=== PATIENT | female | born 1960 | race American Indian/Alaskan Native ===

== ENCOUNTER → 2020-06-08 10:40 | Outpatient (CLI) | payer MEDICARE, MEDICAID, SELFPAY ==
--- NOTE | 2020-06-08 | DI.US.S_ITS ---
PROCEDURE: US PERIPH VENOUS LOW EXTREM RT INDICATIONS: RIGHT LEG SWELLING TECHNIQUE: Real-time imaging, as well as color and pulse Doppler interrogation, were performed of the lower extremity deep veins from the inguinal ligament to the popliteal fossa. COMPARISON: None. FINDINGS: The common femoral, femoral and popliteal veins are normally compressible, and free of intraluminal thrombus. Color and pulse Doppler demonstrate normal phasic intraluminal flow. There is normal augmentation response to distal compression maneuver. IMPRESSION: Negative for deep venous thrombosis. Dictated by: Walter Muniz M.D. on 06/08/2020 at 10:42 Approved by: Walter Muniz M.D. on 06/08/2020 at 10:43
== END ==
PROVIDERS: PCP Family Medicine; Referring Provider Family Medicine; Visit Provider Family Medicine
DX: M79.89 Other specified soft tissue disorders (principal)
CPT/HCPCS: 93971

== ENCOUNTER 2021-11-14 09:16 | Emergency (ER) | payer MEDICARE, MEDICAID, SELFPAY ==
[2021-11-14 09:17] VITALS: BP 150/69; PULSE 83; RESP 28; TEMP 37.3; O2SAT 99; BMI 33.3
--- NOTE | 2021-11-14 09:31 | DI.CT.S_ITS ---
PROCEDURE: CT HEAD/BRAIN WO CON INDICATIONS: fall, head injury, +LOC TECHNIQUE: Noncontrast 4.5 mm thick angled axial sections acquired from the foramen magnum to the vertex, with coronal and sagittal reformats. For radiation dose reduction, the following was used: automated exposure control, adjustment of mA and/or kV according to patient size. COMPARISON: None. FINDINGS: Image quality: Excellent. CSF spaces: Basal cisterns are patent. No extra-axial fluid collections. The ventricles are symmetric in size and shape. Brain: No intracranial bleeds or masses. There is cerebral volume loss for age, with resultant ventricular and sulcal prominence. There are periventricular and deep white matter chronic small vessel ischemic changes. There is intracranial internal carotid artery atherosclerosis. Skull and face: Calvarium and visualized facial bones appear intact, without suspicious lesions. Sinuses: Visualized sinuses and mastoids are clear. IMPRESSION: 1. No CT evidence of acute intracranial abnormalities. No acute skull fracture. 2. Diffuse atrophy and moderate white matter chronic small vessel ischemic changes. Dictated by: Jhon Vargas M.D. on 11/14/2021 at 10:11 Approved by: Jhon Vargas M.D. on 11/14/2021 at 10:11
--- NOTE | 2021-11-14 09:31 | DI.CT.S_ITS ---
PROCEDURE: CT CERVICAL SPINE WO CON INDICATIONS: head injury, LOC TECHNIQUE: Noncontrast 3 mm thick sections acquired from the skull base to the T4 level. Sagittal and coronal reformats were then constructed. For radiation dose reduction, the following was used: automated exposure control, adjustment of mA and/or kV according to patient size. COMPARISON: None. FINDINGS: Image quality: Excellent. Bones: Age indeterminate anterior wedge compression deformity involving superior endplate of T3 vertebral body is seen with up to 20 percent loss of T3 vertebral body height anteriorly. No acute cervical spine fracture or dislocation. Degenerative endplate changes , loss of disc height and bilateral facet hypertrophic changes are noted at C4-5 through C7-T1 levels. Visualized superior ribs are intact. Soft tissues: Prevertebral soft tissues are normal in thickness. No paravertebral hematomas. No apical pneumothoraces. IMPRESSION: 1. No acute cervical spine fracture or dislocation. Age indeterminate anterior wedge compression deformity involving superior endplate of T3 vertebral body as above. 2. Degenerative disc disease throughout mid to lower cervical spine. Dictated by: Jhon Vargas M.D. on 11/14/2021 at 10:19 Approved by: Jhon Vargas M.D. on 11/14/2021 at 10:20
--- NOTE | 2021-11-14 09:32 | ED_ITS ---
HPI - Head Injury General Chief complaint: Fall Stated complaint: Fell and got knocked out- head lac Time Seen by Provider: 11/14/21 09:18 History of Present Illness HPI Narrative: 60-year-old female nonsmoker with noncontributory medical history presents with a chief complaint of a ground level fall at 4:00 a.m. this morning. She was walking down a hallway in her shoe got caught up underneath her and she fell backwards striking her head. She likely had a brief loss of consciousness and a. In the aftermath in which she was ?seeing stars ?and felt a bit groggy. She is now asymptomatic. She does not take any blood thinners. She has had no vomiting and denies any neck, back or extremity injury. She denies prodromal symptoms such as dizziness, weakness or lightheadedness. She has no chest pain, cough or shortness of breath. She has had no fever or chills. She denies runny nose, sore throat. She denies any abdominal pain. Related Data Previous Rx's Medication Instructions Recorded ondansetron 4 mg disintegrating 4 mg PO TID-QID PRN #10 tab 11/14/21 tablet Allergies Allergy/AdvReac Type Severity Reaction Status Date / Time iron Allergy Verified 11/14/21 10:21 Review of Systems Review of Systems Narrative: GENERAL: See HP HEENT: Denies sinus pain, ear pain, sore throat, difficulty swallowing, dizziness. RESPIRATORY: Denies dyspnea, cough, wheezing, hemoptysis, sputum. CARDIOVASCULAR: Denies chest pain, palpitations, orthopnea, edema, GASTROINTESTINAL: Denies nausea, vomiting, abdominal pain, diarrhea, constipation, melena. : Denies dysuria, frequency, incontinence, hematuria, urinary retention. MUSCULOSKELETAL: denies weakness, joint pain, or bony pain SKIN: See HPI NEUROLOGIC: Denies weakness, headache, numbness, change in speech, confusion, seizures, incoordination. PSYCHIATRIC: No concerning psychosocial issues. 12 point review of systems is negative except for those stated above Patient History Social History Smoking Status: Former smoker Exam Narrative Exam Narrative: GENERAL: [60] year old patient appears stated age. Well-developed patient, in mild distress. GCS 15 HEAD: Atraumatic. Normocephalic. Large left occipital laceration without active bleeding, evidence of foreign body or depressed skull fracture EYES: Pupils equal round and reactive. No hyphema Extraocular motions intact. No scleral icterus. No injection or drainage. ENT: Nose without bleeding, purulent drainage. No nasal septal hematoma Throat without erythema, tonsillar hypertrophy or exudate. Airway patent. NECK: Trachea midline. Non tender. No step-offs or crepitance CARDIOVASCULAR: Regular rate and rhythm without murmurs, gallops, or rubs. RESPIRATORY: Clear to auscultation. Breath sounds equal bilaterally. No wheezes, rales, or rhonchi. GASTROINTESTINAL: Abdomen soft, non-tender, nondistended. EXTREMITIES: Mild swelling of R index finger at PIP, no numbness/tingling. Full, but painful ROM BACK: Nontender without deformity or crepitance. No flank tenderness. NEURO: AOx3. SKIN: No rash or erythema of visible areas Initial Vital Signs Initial Vital Signs: Vital Signs Temperature 99.2 F 11/14/21 09:17 Pulse Rate 83 11/14/21 09:17 Respiratory Rate 28 H 11/14/21 09:17 Blood Pressure 150/69 H 11/14/21 09:17 Pulse Oximetry 99 11/14/21 09:17 Procedures Laceration Repair Laceration 1: Site: scalp Side (If applicable): left Size (cm): 8 Depth: involves muscle layer Local Anesthetic: lidocaine 1% and with epi Amount of anesthesia used (mL): 6 Pre-repair: wound explored and cleansed with chlorhexadine Skin layer closed with: theodora Number of sutures: 19 Subcutaneous layer closed with: vicryl Subcutaneous layer suture size: 3-0 Number of sutures: 2 Course Orders Ordered: ED Orders 11/14/21 10:39 XR finger RT min 2V Stat Discontinued Medications Diphtheria/Tetanus/Acell Pertussis (Tet,Diph,Pertuss(Acell),Vac/Pf 0.5 Ml Syringe) 0.5 ml IM .ONCE ONE Stop: 11/14/21 10:40 Last Admin: 11/14/21 10:53 Dose: 0.5 ml Documented by: AILIN Lidocaine/Epinephrine (Lidocaine 1% W/Epi) 1 ml SUBCUT NOW ONE Stop: 11/14/21 09:32 Last Admin: 11/14/21 10:24 Dose: 1 ml Documented by: AILIN Vital Signs Vital signs: Vital Signs - 8 hr 11/14/21 09:17 Temperature 99.2 F Pulse Rate 83 Respiratory Rate 28 H Blood Pressure 150/69 H Pulse Oximetry 99 MDM - Head Injury Imaging Data CT scan - head: Radiologist's Impression: [address] [address] [address] Scan Report Signed Patient: Nora Arriaga MR#: [id number] : 1960 Acct:[id number] Age/Sex: 60 / F Date of Service: 11/14/21 Loc: ED Accession Number: [id number] ?? Procedure: CT head/brain wo con Ordering Provider: Sarmad Temple D.O. PROCEDURE:? CT HEAD/BRAIN WO CON ? INDICATIONS:? fall, head injury, +LOC ? TECHNIQUE:? Noncontrast 4.5 mm thick angled axial sections acquired from the foramen magnum to the vertex, with coronal and sagittal reformats.? For radiation dose reduction, the following was used:? automated exposure control, adjustment of mA and/or kV according to patient size.? ? COMPARISON:? None. ? FINDINGS:? Image quality:? Excellent.? ? CSF spaces:? Basal cisterns are patent.? No extra-axial fluid collections.? The ventricles are symmetric in size and shape.? ? Brain:? No intracranial bleeds or masses.? There is cerebral volume loss for age, with resultant ventricular and sulcal prominence.? There are periventricular and deep white matter chronic small vessel ischemic changes.? There is intracranial internal carotid artery atherosclerosis.? ? Skull and face:? Calvarium and visualized facial bones appear intact, without suspicious lesions.? ? Sinuses:? Visualized sinuses and mastoids are clear.? ? IMPRESSION:? 1. No CT evidence of acute intracranial abnormalities.? No acute skull fracture. 2. Diffuse atrophy and moderate white matter chronic small vessel ischemic changes. ? ? Dictated by: Jhon Vargas M.D. on 11/14/2021 at 10:11 ? ? Approved by: Jhon Vargas M.D. on 11/14/2021 at 10:11 ? CT - cervical spine: Radiologist's Impression: [address] [address] [address] Scan Report Signed Patient: Nora Arriaga MR#: [id number] : 1960 Acct:[id number] Age/Sex: 60 / F Date of Service: 11/14/21 Loc: ED Accession Number: [id number] ?? Procedure: CT cervical spine wo con Ordering Provider: Sarmad Temple D.O. PROCEDURE:? CT CERVICAL SPINE WO CON ? INDICATIONS:? head injury, LOC ? TECHNIQUE:? Noncontrast 3 mm thick sections acquired from the skull base to the T4 level.? Sagittal and coronal reformats were then constructed.? For radiation dose reduction, the following was used:? automated exposure control, adjustment of mA and/or kV according to patient size.? ? COMPARISON:? None. ? FINDINGS:? Image quality:? Excellent.? ? Bones:? Age indeterminate anterior wedge compression deformity involving superior endplate of T3 vertebral body is seen with up to 20 percent loss of T3 vertebral body height anteriorly.? No acute cervical spine fracture or dislocation.? Degenerative endplate changes , loss of disc height and bilateral facet hypertrophic changes are noted at C4-5 through C7-T1 levels.? Visualized superior ribs are intact.? ? Soft tissues:? Prevertebral soft tissues are normal in thickness.? No paravertebral hematomas.? No apical pneumothoraces.? ? ? IMPRESSION:? 1. No acute cervical spine fracture or dislocation.? Age indeterminate anterior wedge compression deformity involving superior endplate of T3 vertebral body as above. 2. Degenerative disc disease throughout mid to lower cervical spine. ? ? Dictated by: Jhon Vargas M.D. on 11/14/2021 at 10:19 ? ? Approved by: Jhon Vargas M.D. on 11/14/2021 at 10:20 ? Discharge Plan Departure Patient Disposition: Home Clinical Impression: Complex laceration of scalp, Concussion, Finger sprain Instructions: DI for Laceration Repair -- [place]man Activity Restrictions/Additional Instructions: *You have been diagnosed with [scalp laceration, repaired with theodora. Mild concussion. As we discussed the CT scan of your head and neck are unremarkable and there is no evidence of bleeding or fracture. The laceration was repaired with 19 theodora at the surface of the skin and 2 deep sutures that will dissolve on their own. *What to do: *Please continue to take your regular medications as directed. [ x] New medication written as a paper prescription * Please keep the wound clean and dry to the best of your ability. Please monitor for signs of infection such as redness to the skin or increasing pain. Have the sutures/theodora removed by your doctor in about 7 days. If you are unable to get into your doctor, we would be happy to remove the sutures/theodora in that same timeframe. You have a slight concussion and will likely have a mild headache and some nausea for a few days. Avoiding highly stimulating activities and even TV or computers may be helpful in minimizing your symptoms. Avoid activities that will put you at risk for another head injury for at least a week. You can take tylenol or motrin for headache or the prescription provided for nausea/vomiting. Return for worsening or persistent symptoms *If you do not have a primary care provider please contact the [facility] Resource line at [phone]. They will ask some questions about your medical history and help get you set up with a doctor in the community. *Return to Emergency Department if you should have any new, worsening or concerning symptoms, such as [fever greater than 101 F, shaking chills, worsening pain, persistent vomiting or other bothersome symptoms] Prescriptions: New ondansetron 4 mg tablet,disintegrating 4 mg PO TID-QID PRN (Reason: nausea and vomiting) Qty: 10 0RF Referrals: Francisco Tse DO [Primary Care Provider] -
[2021-11-14] MEDS: LIDOCAINE 1% W/EPI 1 ML SUBCUT (10:24)
--- NOTE | 2021-11-14 10:39 | DI.RAD.S_ITS ---
PROCEDURE: XR FINGER RT MIN 2V INDICATIONS: pain and swelling at PIP after fall TECHNIQUE: AP hand, 2 views of the right 2nd finger(s) acquired. COMPARISON: None. FINDINGS: Bones: No fractures or dislocations. No suspicious bony lesions. Soft tissues: No suspicious soft tissue calcifications. IMPRESSION: 1. No visible fractures. 2. If there is continued concern for occult fracture, immobilization and reimaging in 7-10 days is recommended. Dictated by: Valentine Smallwood M.D. on 11/14/2021 at 11:15 Approved by: Valentine Smallwood M.D. on 11/14/2021 at 11:16
[2021-11-14] MEDS: TET,DIPH,PERTUSS(ACELL),VAC/PF 0.5 ML SYRINGE IM (10:53)
[2021-11-14 11:01] VITALS: BP 140/63; PULSE 86; RESP 14; O2SAT 95
== END 2021-11-14 11:18 | disposition home or self-care (01) ==
PROVIDERS: Emergency Provider Emergency Medicine; PCP Family Medicine
DX: S01.01XA Laceration without foreign body of scalp, initial encounter (principal); S06.0X0A Concussion without loss of consciousness, initial encounter; S63.610A Unspecified sprain of right index finger, initial encounter; W18.30XA Fall on same level, unspecified, initial encounter; Z23 Encounter for immunization
CPT/HCPCS: 13121; 13122; 70450; 72125; 73140; 90471; 99284; 90715